=== PATIENT | female | born 1970 | race African-American/Black ===

== ENCOUNTER 2025-06-10 09:24 | Emergency (ER) | payer SELFPAY ==
[~2025-06-10] VITALS: Ht 165.1 cm; Wt 94.8 kg
[2025-06-10 09:40] VITALS: PULSE 72; RESP 17; TEMP 98.3
[2025-06-10] MEDS ORDERED: AMLODIPINE BESY10 MG (09:48)
[2025-06-10] MEDS ORDERED: ESIDRIX25 MG (09:48)
[2025-06-10] MEDS ORDERED: MUPIROCIN22 GM TOP (10:28)
[2025-06-10] MEDS: TETANUS/DIPHTHERIA TOX ADULT 0.5 ML SYR IM ONE (10:50)
[2025-06-10 10:57] VITALS: BP 119/72; PULSE 77; RESP 16; O2SAT 100
== END 2025-06-10 10:56 | disposition home or self-care (01) ==
LOC: ER 09:29
DX: S00.81XA Abrasion of other part of head, initial encounter (principal); S50.812A Abrasion of left forearm, initial encounter; W20.8XXA Other cause of strike by thrown, projected or falling object, initial encounter; Y93.01 Activity, walking, marching and hiking; Y92.89 Other specified places as the place of occurrence of the external cause; I10 Essential (primary) hypertension
CPT/HCPCS: 90471; 90714; 99283